=== PATIENT | female | born 1995 | race Two or more races ===

== ENCOUNTER 2024-12-09 22:58 | Emergency (ER) | payer MEDICAID, SELFPAY ==
[2024-12-09 22:59] VITALS: BMI 43.9
[2024-12-09 23:50] VITALS: BP 121/77; PULSE 78; RESP 16; TEMP 36.8; O2SAT 97
--- NOTE | 2024-12-09 23:55 | EDNOTE_ITS ---
ED Back Injury Pain RME/HPI General Chief Complaint: Back Pain/Injury Stated Complaint: RIGHT LOWER BACK PAIN Time Seen by Provider: 12/09/24 23:06 Source: patient, RN notes reviewed and old records reviewed Arrival date/time: 12/09/24 22:58 Mode of arrival: wheelchair Limitations: no limitations RME / HPI RME / HPI Narrative: 29yof presents to ED for 1 month history of right lower back pain. Patient reports she was bending forward while doing laundry then felt a sharp pain to lower back upon standing. Back pain worsens with ROM and ambulation. No fever, nausea/vomiting, abdominal/flank pain, dysuria, hematuria, LE weakness, numbness/tingling or bowel/bladder incontinence reported. Patient has taken Tylenol, back-aid and Arnicare with only mild temporary relief. Related Data Home Medications ?Medication ?Instructions ?Recorded ?Confirmed vit no.95-ferrous 1 tab PO QDAY 01/27/2401/11 fumarate 28 mg-folic acid 800 mcg tablet () Previous Rx's ?Medication ?Instructions ?Recorded ibuprofen 800 mg tablet 800 mg PO Q8H PRN pain #30 t abs 12/10/24 lidocaine 5 % topical patch 1 patch topical QDAY #15 e a 12/10/24 methocarbamol 500 mg tablet 1,000 mg (2 x 500 mg) PO Q 8H PRN 12/10/24 pain #30 tabs methylprednisolone 4 mg tablets in See Rx Instructions .Route 12/10/24 a dose pack (Medrol (Bryson)) .COMPLEX #21 tabs Allergies Allergy/AdvReac Type Severity Reaction Status Date / Time No Known Allergies Allergy Verified 12/09/24 22:59 Review of Systems Review of Systems Systems Reviewed: All systems reviewed, normal except as documented Constitutional Constitutional: Denies chills and Denies fever(s) Gastrointestinal Gastrointestinal: Denies abdominal pain, Denies fecal incontinence, Denies nausea and Denies vomiting Genitourinary Genitourinary: Denies dysuria, Denies flank pain, Denies hematuria and Denies urinary incontinence Musculoskeletal Musculoskeletal: Reports back pain, Denies numbness and Denies tingling Neurologic Neurologic: Denies localized weakness, Denies numbness and Denies tingling Past Medical History Past Medical History GASTROINTESTINAL: Positive Obesity Surgical History OTHER SURGICAL HX: bartholin gland removal, Social History SMOKING STATUS: Never smoker SUBSTANCE USE: does not use ALCOHOL: Never ED Exam General Limitations: Present no limitations General appearance: Present alert and in no apparent distress Head Head exam: Present atraumatic and normocephalic Eye Eye exam: Present normal appearance, PERRL and EOMI ENT ENT exam: Present normal exam and mucous membranes moist Neck Neck exam: Present normal inspection and full ROM Chest Chest inspection: Present normal inspection and symmetric chest wall rise Respiratory Respiratory exam: Present normal lung sounds bilaterally; Absent respiratory distress Cardiovascular Cardiovascular exam: Present regular rate and normal rhythm Abdominal Exam Abdominal exam: Present soft; Absent distention or tenderness Extremities Exam Extremities exam: Present normal inspection and full ROM Back Exam Back exam: Present paraspinal tenderness (right lumbar); Absent vertebral tenderness Neurological Exam Neurological exam: Present alert and oriented X3 Psychiatric Psychiatric exam: Present normal affect and normal mood Skin Skin exam: Present warm, dry, intact and normal color Course Quality Measures none Orders Category Date Time Status HYDROcodone*/APAP 7.5/325 [[place] 7.5/325] Med 12/09/24 23:54 Discontinued 1 tab PO X1 ONE Ketorolac Inj [Toradol Inj] Med 12/09/24 23:54 Discontinued 30 mg IM X1 ONE Lidocaine 5% Patch Med 12/09/24 23:54 Discontinued 1 patch TOP X1 ONE Vital Signs Vital signs: Vital Signs Temperature 98.3 F 12/09/24 23:50 Pulse Rate 78 12/09/24 23:50 Respiratory Rate 16 12/09/24 23:50 Blood Pressure 121/77 12/09/24 23:50 Pulse Oximetry (%) 97 12/09/24 23:50 Oxygen Delivery Method Room Air 12/09/24 23:50 Back Pain / Injury MDM Narrative MDM Narrative:: 29yof presents to ED for 1 month history of right lower back pain. Patient reports she was bending forward while doing laundry then felt a sharp pain to lower back upon standing. Back pain worsens with ROM and ambulation. No fever, nausea/vomiting, abdominal/flank pain, dysuria, hematuria, LE weakness, numbness/tingling or bowel/bladder incontinence reported. Patient has taken Tylenol, back-aid and Arnicare with only mild temporary relief. Patient reassessed. Symptoms improved after medications administered. Patient is neurologically intact, able to ambulate independently. Encouraged rest, NSAID, muscle relaxer, ice/heat application prn. Stable for discharge, RTED precautions given. Patient data External records reviewed:: [facility] previous records (09/27/2022 admit for Bartholin gland cystectomy) Clinical information provided by:: patient Social determinants that could affect healthcare access:: other (specify) (Unemployed) Patient has the following chronic illnesses:: Obesity How is presenting disease/condition affected by chronic disease/condition?: exacerbated by Evaluation data The following diagnostics were reviewed and interpreted by me:: other (specify) (None) Lab and/or radiology exams considered but not ordered:: Lumbar x-rays: No preceding injury/trauma or fall. No midline tenderness Interpretation Summary: na Medications / Prescriptions Medications or Prescriptions considered but not ordered:: None Medication administrations:: Medication Administration History Discontinued Medications Hydrocodone Bitart/Acetaminophen (Hydrocodone/[place]ap 7.5/325 Tablet) 1 tab PO X1 ONE Stop: 12/09/24 23:55 Last Admin: 12/10/24 00:07 Dose: 1 tab Documented By: Ketorolac Tromethamine (Ketorolac Inj 60 Mg/2 Ml Vial) 30 mg IM X1 ONE Stop: 12/09/24 23:55 Last Admin: 12/10/24 00:08 Dose: 30 mg Documented By: Lidocaine (Lidocaine 5% 1 Patch) 1 patch TOP X1 ONE Stop: 12/09/24 23:55 Last Admin: 12/10/24 00:12 Dose: 1 patch Documented By: Above medications administered in ED Consultations Consultation(s) initiated? (list below): No Diagnosis Differential diagnosis back pain/injury: lumbar radiculopathy, sciatica, strain of lumbar region, renal colic and pyelonephritis Most likely diagnosis given after review of the tests above:: Lumbar strain, low back pain Admission Indicated Admission indicated?: not indicated Admission Request Was there a request for admission?: No Disposition Plan Disposition Plan: Discharge Discharge Attestation Discharge Attestation: The patient and all family members were given an opportunity to ask questions and understood the discharge instructions. Discharge instructions specifically effects, indications for sooner follow up or return to the emergency department, and the expected course of current diagnosis. Patient condition: Stable Discharge Plan Plan Patient Disposition: HOME (Self Care) Patient condition on transfer: Stable Prescriptions/Referrals Prescriptions/Med Rec: New ibuprofen 800 mg tablet 800 mg PO Q8H PRN (Reason: pain) Qty: 30 0RF methocarbamol 500 mg tablet 1,000 mg PO Q8H PRN (Reason: pain) Qty: 30 0RF lidocaine 5 % adhesive patch,medicated 1 patch topical QDAY Qty: 15 0RF Rx Instructions: leave on most painful area for up to 12 hrs methylprednisolone [Medrol (Bryson)] 4 mg tablets,dose pack See Rx Instructions .ROUTE .COMPLEX Qty: 21 0RF Rx Instructions: Use as directed No Action PNV cmb#95-ferrous fumarate-FA [] 28 mg iron- 800 mcg tablet 1 tab PO QDAY Referrals: Alexander Baltazar MD [Primary Care Provider] - In 1 week Problem List Clinical Impression: Acute low back pain Patient/Caregiver Discharge Instructions Education Materials: ED Back Pain (Acute or Chronic) Print Language: Irish Stand Alone Forms: Cara Award Info., Patient Portal Info Letter PA/ASSISTANT PRODUCTION MANAGER Supervising Physician PA/ASSISTANT PRODUCTION MANAGER Supervising Physician: Nitin
[2024-12-10] MEDS: HYDROcodone/APAP 7.5/325 TABLET 1 TAB PO (00:07)
[2024-12-10] MEDS: KETOROLAC INJ 60 MG/2 ML VIAL 30 MG IM (00:08)
[2024-12-10] MEDS: LIDOCAINE 5% 1 PATCH TOP (00:12)
== END 2024-12-10 01:31 | disposition home or self-care (01) ==
PROVIDERS: Emergency Provider Emergency Medicine; PCP Family Medicine
DX: M54.50 Low back pain, unspecified (principal)
CPT/HCPCS: 96372; 99283; J1885; J3490; A9270

== ENCOUNTER 2025-04-10 15:00 | Outpatient (RCR) | payer MEDICAID, SELFPAY ==
--- NOTE | 2025-03-27 13:56 | PT.OIERPT ---
PT OP Initial Eval Patient Information Outpatient Physical Therapy Treatment Date: 03/27/25 Visit Reasons: LOW BACK PAIN WITH SCIATICA Medical Diagnosis: M54.41 Treatment Dx #1: Back Pain Start of Care: 03/27/25 Date of Onset: November 2024 Smoking Status Smoking Status: Never smoker Initial Assessment Subjective: Pt is a 29 y/o female reports of back pain (7/10) with intermittent numbness down the legs since November 2024. No imaging has been done thus far. Pt has limitation with prolong sitting, standing, walking, chores, lifting, cooking, cleaning, and performing recreational activities. Objective: L/S AROM: all motions are WFL with end range pain with extension and right sidebending Hip PROM: all motions are WFL except IR Hip MMTs: grossly 3/5 Special Test (+) bonner Muscle Length: Hs tightness Palpation: TTP right L3-L5 facets Assessment: Pt demonstrate right lower back pain leading to difficulty with ADLs. Pt will attempt physical therapy if pain persist Pt will be refer back to provider for further consultation. Short Term and Dancing Teacher Goals 1) Increase L/S AROM WNL in 6 wks to be able to perform recreational activities 2) Decrease back pain to 2/10 in 6 wks to be able to sit and stand more than 30 mins 3) Increase core strength WFL in 6 wks to be able to perform recreational activities 4) Increase hip MMTs grossly to 4-/5 in 6 wks to be able to walk more than 30 mins 5) Indep with HEP Treatment Plan 1) Manual Therapy 2) Therapeutic Activities 3) Therapeutic Exercises 4) Modalities (ice, heat, traction) Frequency and Duration: 2 x wk for 6 wks Certification Dates: 03/27/25 to 06/27/25 Procedure Charges OP PT Eval Mod Complex 30 minutes: Yes
--- NOTE | 2025-04-01 15:58 | PT.ODAYNRPT ---
PT Outpatient Daily Note OP Daily Note Outpatient Physical Therapy Treatment Date: 04/01/25 Visit Reasons: LOW BACK PAIN WITH SCIATICA Subjective: Pt's back feels okay. Pt mentioned her legs still numb intermittently. Objective: Please see flow chart for list of ther ex performed Assessment: tolerate exercises with minimal pain Plan: Continue with PT Length of Time (minutes) of Treatment: 30 Minutes Procedure Charges Therapeutic Exercise 30 minutes: Yes
--- NOTE | 2025-04-04 16:05 | PT.ODAYNRPT ---
PT Outpatient Daily Note OP Daily Note Outpatient Physical Therapy Treatment Date: 04/04/25 Visit Reasons: LOW BACK PAIN WITH SCIATICA Subjective: Pt reports back pain is doing ok, has good and bad days. Objective: Please see flow sheet for ther ex list. Assessment: Pt demonstrates good technique with modified bug exercise, cues for PLB technique to for pt to avoid holding her breath during exercise. Plan: Continue with pOC. Length of Time (minutes) of Treatment: 30 Minutes Procedure Charges Therapeutic Exercise 30 minutes: Yes
--- NOTE | 2025-04-10 15:40 | PT.ODAYNRPT ---
PT Outpatient Daily Note OP Daily Note Outpatient Physical Therapy Treatment Date: 04/10/25 Visit Reasons: LOW BACK PAIN WITH SCIATICA Subjective: Pt's back is feeling so-so. Pt mentioned she has not experience in pain down the legs lately. Objective: Please see flow chart for list of ther ex performed Assessment: tolerate exercises performed. Nerve flossing exercise was withheld today since patient no longer have radicular pain down the legs Plan: Continue with PT Length of Time (minutes) of Treatment: 30 Minutes Procedure Charges Therapeutic Exercise 30 minutes: Yes
== END 2025-04-12 23:59 | disposition home or self-care (01) ==
LOC: CPTX 15:00
PROVIDERS: PCP Nurse Practitioner Family; Referring Provider Nurse Practitioner Family; Visit Provider Nurse Practitioner Family
DX: M54.41 Lumbago with sciatica, right side (principal)
CPT/HCPCS: 97110; 97162

== ENCOUNTER 2025-04-17 15:23 | Outpatient (RCR) | payer MEDICAID, SELFPAY ==
--- NOTE | 2025-04-17 16:09 | PT.ODAYNRPT ---
PT Outpatient Daily Note OP Daily Note Outpatient Physical Therapy Treatment Date: 04/17/25 Visit Reasons: low back pain Subjective: Pt's feels that core exercises is helping back pain. Pt does not mind doing a few more sessions of PT to focus on core strength to see if there's more relief in pain Objective: Please see flow chart for list of ther ex performed Assessment: added more core exercises with minimal pain and good form demonstrated Plan: Continue with PT Length of Time (minutes) of Treatment: 30 Minutes Procedure Charges Therapeutic Exercise 30 minutes: Yes
== END 2025-05-12 23:59 | disposition home or self-care (01) ==
LOC: CPTX 15:23
PROVIDERS: PCP Nurse Practitioner Family; Referring Provider Nurse Practitioner Family; Visit Provider Nurse Practitioner Family
DX: M54.41 Lumbago with sciatica, right side (principal)
CPT/HCPCS: 97110